=== PATIENT | male | born 1955 | race Caucasian/White ===

== ENCOUNTER → 2017-08-28 | Outpatient (CLI) | payer OTHER ==
[~2017-08-28] MED LIST: DICL25CA4 PO; GABA300C10 PO; SUMA50TA4 PO; TIZA4TAB PO; ZOLP10TA5 PO
== END | disposition home or self-care (01) ==
LOC: STAR 09:25
PROVIDERS: ATTEND Thoracic Surgery (Cardiothoracic Vascular Surgery)
DX: Z01.818 Encounter for other preprocedural examination (principal); K40.90 Unilateral inguinal hernia, without obstruction or gangrene, not specified as recurrent
CPT/HCPCS: 93005

== ENCOUNTER 2017-09-07 06:02 | Day surgery (SDC) | payer OTHER ==
[~2017-09-07] VITALS: Ht 177.8 cm; Wt 88.6 kg
[2017-09-07] MEDS ORDERED: EPINEPHRINE 1 MG/ML, 1ML ONE (06:50)
[2017-09-07] MEDS ORDERED: BUPIVACAINE/PF 0.5% ONE (06:50)
[2017-09-07] MEDS ORDERED: FENTANYL PF 100 MCG/2ML ONE ×3 (07:10→08:59)
[2017-09-07] MEDS ORDERED: MIDAZOLAM 1 MG/ML, 2ML ONE (07:11)
[2017-09-07] MEDS ORDERED: LACTATED RINGERS 1,000 ML IV SCH ×2 (07:12→08:58)
[2017-09-07] MEDS ORDERED: ONDANSETRON 2MG/ML, 2ML ONE (07:36)
[2017-09-07] MEDS ORDERED: ROCURONIUM 10 MG/ML,10ML ONE (07:36)
[2017-09-07] MEDS ORDERED: PROPOFOL 10 MG/ML, 20ML ONE (07:36)
[2017-09-07] MEDS ORDERED: CEFAZOLIN 1,000 MG ONE (07:36)
[2017-09-07] MEDS ORDERED: DEXAMETHASONE 4 MG/ML, 1ML ONE (07:36)
[2017-09-07] MEDS ORDERED: SUCCINYLCHOLINE 20 MG/ML, 10ML ONE (07:36)
[2017-09-07] MEDS ORDERED: METOCLOPRAMIDE 5 MG/ML, 2ML IV PRN (08:00)
[2017-09-07] MEDS ORDERED: ONDANSETRON 2MG/ML, 2ML IVPush PRN ×2 (08:00→09:00)
[2017-09-07] MEDS ORDERED: OXYcodone 5 MG/5 ML ORAL.SOL UDC PO PRN (08:00)
[2017-09-07] MEDS ORDERED: HYDROmorphone 1 MG/ML, 1ML IV PRN (08:00)
[2017-09-07] MEDS ORDERED: ACETAMINOPHEN 325 MG TABLET PO PRN (08:00)
[2017-09-07] MEDS ORDERED: LABETALOL 5MG/ML, 20ML IV PRN (08:00)
[2017-09-07] MEDS ORDERED: hydrALAzine 20 MG/ML, 1ML IV PRN (08:00)
[2017-09-07] MEDS ORDERED: BUPIVACAINE/PF-EPI 0.5% 1:200K IM ONE (08:12)
[2017-09-07] MEDS ORDERED: KETOROLAC 30 MG/1 ML ONE (08:59)
[2017-09-07] MEDS ORDERED: ACETAMINOPHEN 650 MG/20.3 ML UDC ONE (08:59)
[2017-09-07] MEDS ORDERED: OXYcodone 5 MG/5 ML ORAL.SOL UDC ONE (08:59)
[2017-09-07] MEDS ORDERED: morphine SULFATE 10 MG/ML, 1ML IVPush PRN (09:00)
[2017-09-07] MEDS ORDERED: HYDROcodone/APAP 5/325 TABLET PO PRN (09:00)
[2017-09-07] MEDS: FENTANYL PF 100 MCG/2ML IV PRN ×3 (09:01→09:21)
[2017-09-07] MEDS ORDERED: KETOROLAC 30 MG/1 ML IVPush PRN (09:30)
[2017-09-07] MEDS ORDERED: HYDROmorphone 2 MG/ML, 1ML ONE (09:33)
== END 2017-09-07 15:30 | disposition home or self-care (01) ==
LOC: OUT 06:02
PROVIDERS: ATTEND Thoracic Surgery (Cardiothoracic Vascular Surgery)
DX: K40.90 Unilateral inguinal hernia, without obstruction or gangrene, not specified as recurrent (principal); K21.9 Gastro-esophageal reflux disease without esophagitis; M10.9 Gout, unspecified; G43.909 Migraine, unspecified, not intractable, without status migrainosus; Z98.890 Other specified postprocedural states; Z88.6 Allergy status to analgesic agent; Z83.3 Family history of diabetes mellitus; Z82.49 Family history of ischemic heart disease and other diseases of the circulatory system; Z80.8 Family history of malignant neoplasm of other organs or systems; Z72.89 Other problems related to lifestyle
CPT/HCPCS: 49650; C1781; J0171; J0330; J0690; J1100; J1170; J1885; J2250; J2405; J2704; J3010; J3490; J7120; S2900